=== PATIENT | female | born 1995 | race Caucasian/White ===

== ENCOUNTER 2022-01-22 17:48 | Emergency (ER) | payer OTHER ==
[2022-01-22] MEDS ORDERED: NAPROXEN500 MG PO (18:43)
== END 2022-01-22 19:24 | disposition home or self-care (01) ==
LOC: FER 17:48
DX: S20.219A Contusion of unspecified front wall of thorax, initial encounter (principal); G40.909 Epilepsy, unspecified, not intractable, without status epilepticus; Z79.899 Other long term (current) drug therapy; W07.XXXA Fall from chair, initial encounter; Y93.89 Activity, other specified; Y92.009 Unspecified place in unspecified non-institutional (private) residence as the place of occurrence of the external cause
CPT/HCPCS: 71101; J1885

== ENCOUNTER 2022-02-07 19:10 | Emergency (ER) | payer OTHER ==
[~2022-02-07 19:10] MED LIST: NAPROXEN500 MG PO
[2022-02-07 21:43] LABS: BASOPHIL 0 % (0-2); EOSINOPHIL 0 % (0-5); HCT 42.2 % (37.0-47.0); HGB 13.9 g/dl (12.5-16.0); LYMPHOCYTE 16.1 % (15-48); MCH 30.1 pg (25.0-31.0); MCHC 32.9 g/dL (32.0-36.0); MCV 91.3 fL (78.0-100.0); MONOCYTE 4.9 % (0-12); NEUTROPHIL 78.7 % (41-80); NRBC 0; PLT 300 K/uL (150-400); RBC 4.62 M/uL (4.20-5.40); RDW 13.1 % (11.5-14.0); WBC 9.2 K/uL (4.0-10.5)
[2022-02-07 22:04] LABS: ALBUMIN 3.5 g/dL (3.4-5.0); BILIRUBIN - TOTAL 0.2 mg/dL (0.2-1.0); BUN/CREAT RATIO (CALC) 10.5 RATIO; CREATININE 1.05 mg/dL (0.51-0.95); GLOBULIN (CALCULATION) 3.8 g/dL; POTASSIUM 4.1 mmol/L (3.5-5.1); TOTAL PROTEIN 7.3 g/dL (6.4-8.2)
[2022-02-07 22:14] LABS: HCG (URINE) SCREEN NEGATIVE (NEGATIVE)
== END 2022-02-07 23:19 | disposition home or self-care (01) ==
LOC: FER 19:10
PROVIDERS: Emergency Medicine
DX: G40.909 Epilepsy, unspecified, not intractable, without status epilepticus (principal); Z79.899 Other long term (current) drug therapy
CPT/HCPCS: 36415; 70450; 72125; 80053; 84703; 85025